=== PATIENT | female | born 2000 | race Caucasian/White ===

== ENCOUNTER → 2024-07-19 | Outpatient (CLI) | payer SELFPAY ==
[2024-07-19 12:59] LABS: ALB/GLOB Ratio 1.1 RATIO (0.9-2.4); AST(SGOT) 13 U/L (15-37); Alanine Aminotransfer ALT/SGPT 29 U/L (13-56); Albumin, Serum 4.1 g/dL (3.2-5.0); Alkaline Phosphatase 62 U/L (45-117); Anion Gap 8 (5-15); BUN 13 mg/dL (7-18); BUN/Creat Ratio 16.5 RATIO (10-20); Calcium,Total 9.7 mg/dL (8.5-10.1); Chloride 106 mmol/L (98-107); Creatinine, Serum 0.79 mg/dL (0.55-1.02); EST Glomerular Filtration Rate 96 mL/min (>60); Est Glom Filt Rate - Afr Amer 116 mL/min (>60); Free T3 2.7 pg/mL (2.18-3.98); Globulin 3.6 g/dL (2.2-4.2); Glucose 96 mg/dL (74-106); Protein, Total 7.7 g/dL (6.4-8.2); Sodium Level 141 mmol/L (136-145); T4 Free Direct 1.01 ng/dL (0.76-1.46)
[2024-07-21 14:07] LABS: HPV Reflexed? NOT INDICATED
== END | disposition home or self-care (01) ==
PROVIDERS: Nurse Practitioner Family; Referring Provider Nurse Practitioner Women's Health; Visit Provider Nurse Practitioner Women's Health
DX: Z12.4 Encounter for screening for malignant neoplasm of cervix (principal); Z13.29 Encounter for screening for other suspected endocrine disorder
CPT/HCPCS: 36415; 80053; 84439; 84443; 84481; 88175; G0145

== ENCOUNTER → 2024-08-02 | Outpatient (CLI) | payer SELFPAY ==
--- NOTE | 2024-08-02 16:20 | US_ITS ---
STUDY: ULTRASOUND OF THE FEMALE PELVIS - COMPLETE REASON FOR EXAM: Female, 23 years old. irregular menses LMP: 06/27/2024 TECHNIQUE: Transabdominal and Transvaginal TECHNICAL QUALITY: Adequate. COMPARISON: None. FINDINGS: The uterus is anteverted and is in a midline position. The uterus measures 7.5 x 4.8 x 2.9 cm. Normal uterine cervix. The endometrium measures 11 mm in thickness, and is hyperechoic. There is no demonstrated endometrial mass. There is no demonstrated myometrial mass. I.U.D. - The patient does not have an I.U.D. The right ovary is visualized. The right ovary measures 3.3 x 2.3 x 1.6 cm. There is no right ovarian cyst or ovarian mass. There is no visualized right adnexal mass or complex lesion. There is normal arterial and normal venous vascularity. The left ovary is visualized. The left ovary measures 3.5 x 4.3 x 2.5 cm. There is no left ovarian cyst or ovarian mass. There is no visualized left adnexal mass or complex lesion. There is normal arterial and normal venous vascularity. There is no fluid in the cul-de-sac. The pre void volume of the bladder was ml. The post void volume of the bladder was ml. Polycystic ovary disease: No. US/Pelvic w/ Transvaginal IMPRESSION: Normal female pelvis. Electronically Signed: Eliceo Santillan MD at 9:29 EST ,
== END | disposition home or self-care (01) ==
LOC: US 16:19
PROVIDERS: PCP Nurse Practitioner Family; Referring Provider Nurse Practitioner Family; Visit Provider Nurse Practitioner Family
DX: N92.6 Irregular menstruation, unspecified (principal)
CPT/HCPCS: 76830; 76856

== ENCOUNTER → 2024-08-13 | Outpatient (CLI) | payer SELFPAY | END | disposition home or self-care (01) | LOC: LAB 10:10 | PROVIDERS: PCP Nurse Practitioner Family; Referring Provider Advanced Practice Midwife; Visit Provider Advanced Practice Midwife | DX: Z31.41 Encounter for fertility testing (principal); N92.6 Irregular menstruation, unspecified | CPT/HCPCS: 36415 ==

== ENCOUNTER → 2024-08-31 | Outpatient (CLI) | payer SELFPAY ==
[2024-09-01 07:06] LABS: PROGESTERONE 0.4 ng/mL (.)
== END | disposition home or self-care (01) ==
LOC: BWCLAB 08:28
PROVIDERS: Advanced Practice Midwife; PCP Nurse Practitioner Family; Referring Provider Obstetrics & Gynecology; Visit Provider Obstetrics & Gynecology
DX: Z31.41 Encounter for fertility testing (principal); N92.6 Irregular menstruation, unspecified
CPT/HCPCS: 36415; 84144

== ENCOUNTER → 2024-10-26 | Outpatient (CLI) | payer SELFPAY ==
[2024-10-26 17:18] LABS: hCG Titer Quant., Serum 3 mIU/mL (1-3)
== END | disposition home or self-care (01) ==
LOC: BWCLAB 15:38
PROVIDERS: PCP Nurse Practitioner Family; Referring Provider Obstetrics & Gynecology; Visit Provider Obstetrics & Gynecology
DX: N91.2 Amenorrhea, unspecified (principal)
CPT/HCPCS: 36415; 84702

== ENCOUNTER → 2025-04-29 | Outpatient (CLI) | payer SELFPAY ==
[2025-04-29 12:50] LABS: Hematocrit 34.9 % (37-47); Hemoglobin 11.6 g/dL (12.0-15.0); Immature Granulocytes Count 0.020 X10^3/uL (0.0-0.0); Mean Corp Hgb Conc 33.2 g/dL (32-36); Mean Corpuscular Volume 85.5 fL (81-99); Mean Platelet Vol. 10.2 fl (6.2-12.0); NRBC Flagged by Analyzer 0 % (0-5); Platelet Count 245 K/mm3 (150-450); RBC Distribution Width CV 12.3 % (11.6-14.6); RBC Distribution Width SD 38.0 fl (35.1-43.9); Red Blood Count 4.08 M/mm3 (4.2-5.4); White Blood Count 5.8 K/mm3 (4.4-11.0)
[2025-04-29 16:10] LABS: HIV Nonreactive (Nonreactive); Hepatitis B Surface Antigen Nonreactive (Nonreactive); Hepatitis C Antibody Nonreactive (Nonreactive); Syphilis Antibodies Nonreactive (Nonreactive)
[2025-05-02 21:07] LABS: Chlamydia By Nucleic Acid AMP Negative (Negative); Gonococcus By Nucleic Acid AMP Negative (Negative)
== END | disposition home or self-care (01) ==
PROVIDERS: PCP Nurse Practitioner Family; Referring Provider Advanced Practice Midwife; Visit Provider Advanced Practice Midwife
DX: O09.90 Supervision of high risk pregnancy, unspecified, unspecified trimester (principal); Z3A.00 Weeks of gestation of pregnancy not specified
CPT/HCPCS: 36415; 85025; 86703; 86762; 86780; 86803; 86850; 86900; 86901; 87086; 87340; 87491; 87591

== ENCOUNTER → 2025-07-18 | Outpatient (CLI) | payer SELFPAY ==
--- NOTE | 2025-07-18 15:00 | US_ITS ---
PROCEDURE: OB ANATOMY W/ TRANSVAGINAL 07/18/2025 REASON FOR EXAM: ANATOMY SCAN TECHNIQUE: Procedure Code: [id number] Modality: US Procedure: OB ANATOMY W/ TRANSVAGINAL COMPARISON: 29 April 2025. FINDINGS Number: 1 Position: cephalic Placental Position: Bilobed Placental Abnormalities: velamentous cord insertion, amniotic band DIMENSIONS: Biparietal Diameter: 4.7 cm / 20 weeks and 1 day Head Circumference: 17.7 cm / 20 weeks and 1 day Abdominal Circumference: 15.1 cm / 20 weeks and 2 days Femur Length: 3.2 cm / 19 weeks and 6 days ESTIMATED WEIGHT: 335 g ESTIMATED WEIGHT PERCENTILE (24+ weeks): 37% ESTIMATED GESTATIONAL AGE: Baseline: 20 weeks and 2 days By Ultrasound: 20 weeks and 0 days ESTIMATED DATE OF DELIVERY: Baseline: December 03, 2025. By Ultrasound: December 05, 2025. BIOPHYSICAL ASSESSMENT: Amniotic Fluid Volume: adequate Amniotic Fluid Index: Not measured Cardiac Motion: 148 beats per minute (average) Trunk and Limb Motion: Present. MATERNAL ANATOMY: Adnexa: Neither maternal ovary is successfully identified. Cervical Length (if measured): 3.3 cm. ANATOMY: Spine: seen Cranium: seen Cerebellum: seen Cisterna Magna: seen Cavum Septum Pellucidi: seen Lateral Ventricles: seen Choroid Plexus: 4 mm cyst Midline Falx: seen Upper Lip/nose: seen Heart: seen Ventricular Outflow Tracts: Not visualized Stomach: seen Kidneys: seen Bladder: seen Umbilical Cord: 3 vessel cord Extremities: seen US/OB Anatomy w/ Transvaginal IMPRESSION: 1. Single living intrauterine gestation at 20 weeks and 2 days in the cephalic presentation. 2. heart rate of 148 bpm. 3. Amniotic band in the lower uterine segment. 4. Velamentous cord insertion. 5. Choroid plexus cyst. 6. Nonvisualization of the ventricular outflow tracts. Consider maternal medicine consultation for further evaluation. Reading Location: [id number]
== END | disposition home or self-care (01) ==
LOC: US 14:58
PROVIDERS: Referring Provider Obstetrics & Gynecology; Visit Provider Obstetrics & Gynecology
DX: O09.92 Supervision of high risk pregnancy, unspecified, second trimester (principal); Z3A.20 20 weeks gestation of pregnancy
CPT/HCPCS: 76805; 76817